=== PATIENT | male | born 1980 | race African-American/Black ===

== ENCOUNTER 2020-07-03 20:32 | Emergency (ER) | payer OTHER ==
[~2020-07-03] VITALS: Ht 180.3 cm; Wt 87.1 kg
[2020-07-03] MEDS ORDERED: MULTIVITAMIN FOR MEN (21:07)
[2020-07-03] MEDS ORDERED: NAPR-585 PO (21:07)
[2020-07-03] MEDS ORDERED: GABA-586 PO (21:07)
--- NOTE | 2020-07-03 21:14 | PHYS DOC ---
General Adult EDM: Chief Complaint: BACK PAIN - NO INJURY HPI: HPI: 39-year-old male presents with low back pain. 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 He took the [employer] test yesterday which has a lot of activities that strain the low back. Later in the day he started to have more pain. When he woke up this morning he was very stiff and had significant low back pain. It has not gotten better throughout the day. He has some radiation down the right leg. Denies perineal numbness, loss of bowel or bladder. He has known neck, back, and knee problems. He takes gabapentin for his neck. He has tried naproxen which is not helping at all. He has spasms of the low back which feel like an electrical shock type feeling. He has no other complaints this time. Review of Systems: Review of Systems: Constitutional: Denies fever or chills Eyes: Denies change in visual acuity HENT: Denies nasal congestion or sore throat Respiratory: Denies cough or shortness of breath Cardiovascular: Denies chest pain or edema GI: Denies abdominal pain, nausea, vomiting, bloody stools or diarrhea : Denies dysuria Musculoskeletal: Low back pain Integument: Denies rash Neurologic: Denies headache, focal weakness or sensory changes Endocrine: Denies polyuria or polydipsia Lymphatic: Denies swollen glands Psychiatric: Denies depression or anxiety Current Medications: Current Meds: Current Medications Medications (Trade) Dose Ordered Sig/Jacques Start Time Stop Time Status Last Admin Dose Admin Acetaminophen/ Hydrocodone Bitart (Lortab 7.5/325) 1 tab 1X ONCE 07/03/20 21:15 07/03/20 21:16 Prednisone (Prednisone) 60 mg 1X ONCE 07/03/20 21:15 07/03/20 21:16 Allergies: Allergies: Allergies Coded Allergies Type Severity Reaction Last Updated Verified No Known Drug Allergies 07/03/20 No Physical Exam: PE: Constitutional: Well developed, well nourished, no acute distress, non-toxic appearance. [] HENT: Normocephalic, atraumatic, bilateral external ears normal, oropharynx moist, no oral exudates, nose normal. [] Eyes: PERRLA, EOMI, conjunctiva normal, no discharge. [] Neck: Normal range of motion, no tenderness, supple, no stridor. [] Cardiovascular:Heart rate regular rhythm, no murmur [] Lungs & Thorax: Bilateral breath sounds clear to auscultation [] Abdomen: Bowel sounds normal, soft, no tenderness, no masses, no pulsatile masses. [] Skin: Warm, dry, no erythema, no rash. [] Back: Tenderness over the lumbar spine with bilateral paraspinal muscle spasm. [] Extremities: No tenderness, no cyanosis, no clubbing, ROM intact, no edema. [] Neurologic: Alert and oriented X 3, normal motor function, normal sensory function, no focal deficits noted. [] Psychologic: Affect normal, judgement normal, mood normal. [] EKG: EKG: [] Radiology/Procedures: Radiology/Procedures: [] Impressions: Lumbar spine 3 views: Reason for examination: Lumbar pain for one day. Injured during exercise. The vertebral bodies of the lumbar spine are normally aligned anteriorly and posteriorly. There does appear to be straightening of the normal curvature of the lumbar spine. No acute fracture or subluxation is evident. Posterior brittny ments appear to be intact. The intervertebral discs appear to be maintained. No gross abnormality seen at the sacrum or sacroiliac joints. IMPRESSION: Straightening of the normal curvature of the lumbar spine. No acute bony abnormality evident in the lumbar spine. Electronically signed by: Heather Kauffman MD (07/03/2020 9:33 PM) [facility] DICTATED AND SIGNED BY: HEATHER KAUFFMAN MD DATE: 07/03/202131 CC: RENE SALINAS DO; JAIME MITCHELL [facility]- ~MTH0 0 Heart Score: C/O Chest Pain: N/A Risk Factors: Risk Factors: DM, Current or recent (<one month) smoker, HTN, HLP, family history of CAD, obesity. Risk Scores: Score 0 - 3: 2.5% MACE over next 6 weeks - Discharge Home Score 4 - 6: 20.3% MACE over next 6 weeks - Admit for Clinical Observation Score 7 - 10: 72.7% MACE over next 6 weeks - Early Invasive Strategies Course & Med Decision Making: Course & Med Decision Making Pertinent Labs and Imaging studies reviewed. (See chart for details) Patient's x-rays do not show any acute fractures or misalignment. I believe the patient has irritated the nerves in his low back and is getting reflex muscle spasm. I have given him Bandon, Flexeril, and prednisone. We will discharge him with prescriptions for all 3 of those. An additional 3 days of prednisone. He already has a follow-up appointment scheduled for his neck pain and will discuss his back injury with his physician at that time if needed. He is stable for discharge at this time [] Dragon Disclaimer: Dragon Disclaimer: This electronic medical record was generated, in whole or in part, using a voice recognition dictation system. Departure Departure: Impression: Primary Impression: Lumbar strain Qualified Codes: S39.012A - Strain of muscle, fascia and tendon of lower back, initial encounter Disposition: HOME / SELF CARE / HOMELESS Condition: STABLE Referrals: JAIME MITCHELL-[facility] (PCP) Patient Instructions: Low Back Sprain with Rehab-[facility] Scripts Hydrocodone/Acetaminophen (Hydrocodone-Acetamin 5-325 mg) 1 Each Tablet 1-2 EACH PO Q6H PRN for PAIN, #14 TAB Prov: RENE SALINAS DO 07/03/20 Prednisone (PREDNISONE) 10 Mg Tablet 60 MG PO DAILY for sciatica for 3 Days, #18 TAB Prov: RENE SALINAS DO 07/03/20 Cyclobenzaprine Hcl (CYCLOBENZAPRINE HCL) 10 Mg Tablet 1 TAB PO TID PRN for MUSCLE SPASMS, #30 TAB Prov: RENE SALINAS DO 07/03/20 REEN SALINAS DO July 03, 2020 21:14
[2020-07-03] MEDS ORDERED: predniSONE 20 MG TABLET PO ONE (21:15)
[2020-07-03] MEDS ORDERED: HYDROcodone/APAP 7.5/325MG 1 TAB TABLET PO ONE (21:15)
[2020-07-03] MEDS ORDERED: CYCLOBENZAPRINE 10 MG TABLET. PO ONE (21:15)
--- NOTE | 2020-07-03 21:35 | RAD ---
Lumbar spine 3 views: Reason for examination: Lumbar pain for one day. Injured during exercise. The vertebral bodies of the lumbar spine are normally aligned anteriorly and posteriorly. There does appear to be straightening of the normal curvature of the lumbar spine. No acute fracture or subluxat ion is evident. Posterior elements appear to be intact. The intervertebral discs appear to be maintai lissa. No gross abnormality seen at the sacrum or sacroiliac joints. IMPRESSION: Straightening of the normal curvature of the lumbar spine. No acute bony abnormality evident in the l umbar spine. Electronically signed by: Heather Dooley MD (07/03/2020 9:33 PM) [facility]
[2020-07-03] MEDS ORDERED: CYCL-331 PO (22:02)
[2020-07-03] MEDS ORDERED: PRED-220 PO (22:02)
[2020-07-03] MEDS ORDERED: HYDR-2759 PO (22:02)
[2020-07-03 22:15] VITALS: BP 141/79
[2020-07-03] MEDS ORDERED: HYDROcodone/APAP 5/325MG 1 TAB TABLET PO ONE (22:15)
== END 2020-07-03 22:35 | disposition home or self-care (01) ==
LOC: ER 20:32
DX: S39.012A Strain of muscle, fascia and tendon of lower back, initial encounter (principal); X50.9XXA Other and unspecified overexertion or strenuous movements or postures, initial encounter; Y93.89 Activity, other specified; Y92.89 Other specified places as the place of occurrence of the external cause; Y99.8 Other external cause status
CPT/HCPCS: 72100; 99284; J7512